=== PATIENT | male | born 1945 | race Two or more races ===

== ENCOUNTER 2017-01-09 16:37 | Inpatient (IN) | payer MEDICARE, BC ==
[~2017-01-09] VITALS: Ht 172.7 cm; Wt 53.5 kg
[2017-01-09] MEDS ORDERED: IPRATROPIUM BROMIDE (0.02%) 0.5MG/2.5ML NEB HHN STA (16:59)
[2017-01-09] MEDS ORDERED: METHYLPREDNISOLONE SOD SUCC 125 MG/2 ML VIAL IV STA (16:59)
[2017-01-09 17:18] LABS: HEMATOCRIT. 37.6 % (42.0-52.0); HEMOGLOBIN. 12.9 g/dL (14.0-18.0); MEAN CORPUSCULAR HEMOGLOBIN 33.6 pg (28.0-32.0); MEAN CORPUSCULAR HGB CONC 34.3 g/dL (31.0-37.0); PLATELET 202 x1000/uL (130-400); RED BLOOD CELL COUNT 3.83 mill/uL (4.7-6.1); RED CELL DISTRIBUTION WIDTH 15.2 % (11.6-14.6); WHITE BLOOD COUNT 5.6 x1000/uL (4.5-11.0)
[2017-01-09 17:24] LABS: DIFFERENTIAL COMMENT 1
[2017-01-09] MEDS: ALBUTEROL (0.083%) 2.5MG/3ML NEB HHN SCH ×2 (17:25→18:30)
[2017-01-09 17:27] LABS: PROTHROMBIN TIME 10.8 sec
[2017-01-09 17:39] LABS: ALANINE AMINOTRANSFERASE 16 IU/L (13-61); ALBUMIN 2.7 g/dL (3.4-5.0); ANION GAP 13; CARBON DIOXIDE 30 mEq/L (21-32); CHLORIDE 97 mEq/L (98-107); INDEX HEMOLYSI 1 (1-3); INDEX ICTERIC 1 (1-4); INDEX LIPEMIC 1 (1-3); UREA NITROGEN BLOOD 41 mg/dL (7-21); eGFR 43 mL/min (>60)
[2017-01-09 17:45] LABS: NT PRO B-TYPE NATRIURETIC PEP 29860 pg/mL (5-125)
[2017-01-09 17:47] LABS: PLATELET ESTIMATE NORMAL
[2017-01-09 17:48] LABS: ANISOCYTOSIS 1+
[2017-01-09] MEDS ORDERED: ENOXAPARIN 80MG/0.8ML SYR SUBCUT ONE (18:00)
[2017-01-09] MEDS ORDERED: ASPIRIN 325MG TABLET PO ONE (18:00)
[2017-01-09 18:52] LABS: BG BASE EXCESS 1.6 mmol/L (-2.0-2.0); BG DEOXYHEMOGLOBIN 3.6 % (0.0-5.0); BG FRACTION INSPIRED OXYGEN 21; BG HCO3 ACT 30.6 mmol/L (22.0-26.0); BG METHEMOGLOBIN 0.2 % (0.0-1.5); BG OXYGEN SATURATION 96.4 % (92.0-98.5); BG OXYHEMOGLOBIN 95.2 % (94.0-97.0); BG PCO2 70.5 mmHg (35.0-45.0); BG PH 7.255 (7.350-7.450); BG PO2 97.5 mmHg (75.0-100.0); BG SAMPLE SITE RIGHT BRACHIAL; BG TOTAL HEMOGLOBIN 13.2 g/dL (12.0-18.0); BG VENT MODE ROOM AIR
[2017-01-09] MEDS ORDERED: ACETAMINOPHEN 325MG TABLET PO PRN (19:15)
[2017-01-09] MEDS ORDERED: DIPHENHYDRAMINE 50MG/ML VIAL IV PRN (19:15)
[2017-01-09] MEDS ORDERED: DEXTROSE 50% WATER 50ML SYRINGE IV PRN (19:15)
[2017-01-09] MEDS ORDERED: ONDANSETRON HCL 4MG/2ML VIAL IV PRN (19:15)
[2017-01-09] MEDS ORDERED: ZOLPIDEM TARTRATE 5MG TABLET PO PRN (19:15)
[2017-01-09] MEDS ORDERED: CLONIDINE 0.1MG TABLET PO PRN (19:15)
[2017-01-09] MEDS ORDERED: TRAMADOL 50MG TABLET PO PRN (19:15)
[2017-01-09] MEDS ORDERED: NA PHOS,M-B/NA PHOS,DI-BA ENEMA 118ML PR PRN (19:15)
[2017-01-09] MEDS ORDERED: MAGNESIUM/ALUMINUM HYDROXIDE/SIMETHICONE 30ML UDC PO PRN (19:15)
[2017-01-09] MEDS ORDERED: LORAZEPAM 2MG/ML CPJ IV PRN (19:15)
[2017-01-09 22:00] VITALS: BP 117/50
[2017-01-09] MEDS: LEVOFLOXACIN 500MG PREMIX 100 ML IV SCH (23:04)
[2017-01-09 23:48] LABS: CREATINE KINASE MB FRACTION 2.6 ng/mL (0.5-3.6)
[2017-01-10] VITALS (12 sets, daily range): BP systolic 107–128; BP diastolic 43–80
[2017-01-10 00:12] LABS: TROPONIN I 0.56 ng/mL (0.00-0.04)
[2017-01-10] MEDS: CEFTRIAXONE 1 G PREMIX 50 ML IV SCH ×2 (02:13→08:17)
[2017-01-10] MEDS: CARVEDILOL 3.125 MG TABLET PO SCH ×2 (06:17→18:23)
[2017-01-10] MEDS: BLOOD SUGAR DIAGNOSTIC STRIP TEST SCH ×4 (07:30→21:16)
[2017-01-10] MEDS: INSULIN LISPRO 100 UNITS/ML SUBCUT SCH ×4 (08:00→21:15)
[2017-01-10] MEDS: ZINC SULFATE 220 MG ( 50 ) CAPSULE PO SCH (08:16)
[2017-01-10] MEDS: ASPIRIN 325MG EC TABLET PO SCH (08:16)
[2017-01-10] MEDS: PANTOPRAZOLE SODIUM 40 MG/VIAL IV SCH (08:17)
[2017-01-10 08:37] LABS: CREATINE KINASE MB FRACTION 2.5 ng/mL (0.5-3.6); TROPONIN I 0.28 ng/mL (0.00-0.04)
[2017-01-10] MEDS: GUAIFENESIN/DM 600MG/30MG ER TAB 12HR PO SCH ×3 (09:18→21:14)
[2017-01-10 12:30] LABS: HEMATOCRIT. 36.9 % (42.0-52.0); HEMOGLOBIN. 12.5 g/dL (14.0-18.0); MEAN CORPUSCULAR HEMOGLOBIN 33.5 pg (28.0-32.0); MEAN CORPUSCULAR HGB CONC 33.9 g/dL (31.0-37.0); MEAN CORPUSCULAR VOLUME 98.9 fL (80.0-94.0); MEAN PLATELET VOLUME 9.5 fl (7.4-10.4); PLATELET 223 x1000/uL (130-400); RED BLOOD CELL COUNT 3.74 mill/uL (4.7-6.1); RED CELL DISTRIBUTION WIDTH 15.4 % (11.6-14.6); WHITE BLOOD COUNT 5.9 x1000/uL (4.5-11.0)
[2017-01-10 12:39] LABS: DIFFERENTIAL COMMENT 1
[2017-01-10 13:14] LABS: ALANINE AMINOTRANSFERASE 16 IU/L (13-61); ALBUMIN 2.5 g/dL (3.4-5.0); ANION GAP 12; CALCIUM 9.2 mg/dL (8.5-10.1); CARBON DIOXIDE 32 mEq/L (21-32); CHLORIDE 99 mEq/L (98-107); INDEX HEMOLYSI 1 (1-3); INDEX ICTERIC 1 (1-4); INDEX LIPEMIC 1 (1-3); IRON 32 ug/dL (50-175); TOTAL IRON BINDING CAPACITY 219 ug/dL (250-450); UREA NITROGEN BLOOD 40 mg/dL (7-21); eGFR 54 mL/min (>60)
[2017-01-10] MEDS: METHYLPREDNISOLONE SOD SUCC 125 MG/2 ML VIAL IV SCH ×2 (13:35→21:14)
[2017-01-10 13:43] LABS: FOLIC ACID (FOLATE) SERUM 4.7 ng/mL (>5.38)
[2017-01-10 14:26] LABS: ATYPICAL LYMPHOCYTES 1; PLATELET ESTIMATE NORMAL
[2017-01-10] MEDS: GUAIFENESIN 200MG/10ML SUGAR FREE UDC PO PRN (15:40)
[2017-01-10] MEDS: ENOXAPARIN 80MG/0.8ML SYR SUBCUT SCH ×2 (18:25→18:56)
[2017-01-11] VITALS (11 sets, daily range): BP systolic 98–138; BP diastolic 57–96
[2017-01-11] MEDS: CARVEDILOL 3.125 MG TABLET PO SCH ×2 (05:17→08:18)
[2017-01-11] MEDS: METHYLPREDNISOLONE SOD SUCC 125 MG/2 ML VIAL IV SCH ×3 (05:21→21:38)
[2017-01-11] MEDS: BLOOD SUGAR DIAGNOSTIC STRIP TEST SCH ×4 (07:30→21:38)
[2017-01-11] MEDS: INSULIN LISPRO 100 UNITS/ML SUBCUT SCH ×4 (08:00→21:00)
[2017-01-11] MEDS: GUAIFENESIN/DM 600MG/30MG ER TAB 12HR PO SCH ×2 (08:17→21:38)
[2017-01-11] MEDS: ZINC SULFATE 220 MG ( 50 ) CAPSULE PO SCH (08:18)
[2017-01-11] MEDS: ASPIRIN 325MG EC TABLET PO SCH (08:18)
[2017-01-11] MEDS: PANTOPRAZOLE SODIUM 40 MG/VIAL IV SCH (08:19)
[2017-01-11] MEDS: LEVOFLOXACIN 500MG PREMIX 100 ML IV SCH (09:55)
[2017-01-11 10:38] LABS: *AMPHETAMINES SCREEN URINE NEGATIVE (NEGATIVE); *BARBITURATES SCREEN URINE NEGATIVE (NEGATIVE); *BENZODIAZEPINES SCREEN URINE NEGATIVE (NEGATIVE); *COCAINE SCREEN URINE NEGATIVE (NEGATIVE); CANNABINOID URINE SCREEN NEGATIVE (NEGATIVE); ECSTASY MDMA SCREEN URINE NEGATIVE (NEGATIVE); METHADONE URINE SCREEN NEGATIVE (NEGATIVE); OPIATES URINE SCREEN NEGATIVE (NEGATIVE); PHENCYCLIDINE URINE SCREEN NEGATIVE (NEGATIVE)
[2017-01-11] MEDS: CEFTRIAXONE 1 G PREMIX 50 ML IV SCH (11:30)
[2017-01-11] MEDS: MEGESTROL ACETATE 400 MG/10 ML UDC PO SCH ×2 (12:02→16:59)
[2017-01-11] MEDS: DOCUSATE SODIUM 100MG CAPSULE PO PRN (12:02)
[2017-01-11] MEDS ORDERED: SODIUM CHLORIDE 10% FOR INH 15ML VIAL NEB INH SCH (17:30)
[2017-01-11] MEDS: ENOXAPARIN 80MG/0.8ML SYR SUBCUT SCH (17:51)
[2017-01-12] VITALS (12 sets, daily range): BP systolic 106–147; BP diastolic 54–88
[2017-01-12] MEDS: METHYLPREDNISOLONE SOD SUCC 125 MG/2 ML VIAL IV SCH ×2 (05:55→13:16)
[2017-01-12] MEDS: CARVEDILOL 3.125 MG TABLET PO SCH ×2 (05:56→17:02)
[2017-01-12 06:36] LABS: HEMATOCRIT. 35.9 % (42.0-52.0); HEMOGLOBIN. 11.9 g/dL (14.0-18.0); MEAN CORPUSCULAR HEMOGLOBIN 32.4 pg (28.0-32.0); MEAN CORPUSCULAR HGB CONC 33.1 g/dL (31.0-37.0); MEAN CORPUSCULAR VOLUME 97.9 fL (80.0-94.0); MEAN PLATELET VOLUME 9.1 fl (7.4-10.4); PLATELET 283 x1000/uL (130-400); RED BLOOD CELL COUNT 3.66 mill/uL (4.7-6.1); RED CELL DISTRIBUTION WIDTH 15.6 % (11.6-14.6); WHITE BLOOD COUNT 16.1 x1000/uL (4.5-11.0)
[2017-01-12 07:00] LABS: DIFFERENTIAL COMMENT 1
[2017-01-12] MEDS: BLOOD SUGAR DIAGNOSTIC STRIP TEST SCH ×4 (07:30→21:12)
[2017-01-12 07:35] LABS: CALCIUM 9.4 mg/dL (8.5-10.1); THYROID STIMULATING HORMONE 1.4 uIU/mL (0.36-3.74)
[2017-01-12] MEDS: ASPIRIN 325MG EC TABLET PO SCH (08:52)
[2017-01-12] MEDS: GUAIFENESIN/DM 600MG/30MG ER TAB 12HR PO SCH ×2 (08:52→21:05)
[2017-01-12] MEDS: ZINC SULFATE 220 MG ( 50 ) CAPSULE PO SCH (08:53)
[2017-01-12] MEDS: INSULIN LISPRO 100 UNITS/ML SUBCUT SCH ×3 (08:53→21:12)
[2017-01-12] MEDS: MEGESTROL ACETATE 400 MG/10 ML UDC PO SCH ×2 (08:54→17:00)
[2017-01-12] MEDS ORDERED: FAMOTIDINE 20MG TABLET PO SCH (09:00)
[2017-01-12] MEDS: AZITHROMYCIN 500 MG TABLET PO SCH (09:00)
[2017-01-12] MEDS: CEFTRIAXONE 1 G PREMIX 50 ML IV SCH (10:25)
[2017-01-12 11:56] LABS: BG BASE EXCESS 8.7 mmol/L (-2.0-2.0); BG DEOXYHEMOGLOBIN 1.5 % (0.0-5.0); BG FRACTION INSPIRED OXYGEN 36; BG HCO3 ACT 37.5 mmol/L (22.0-26.0); BG METHEMOGLOBIN 0.2 % (0.0-1.5); BG OXYGEN SATURATION 98.5 % (92.0-98.5); BG OXYHEMOGLOBIN 98.3 % (94.0-97.0); BG PCO2 75.1 mmHg (35.0-45.0); BG PH 7.316 (7.350-7.450); BG PO2 147.1 mmHg (75.0-100.0); BG SAMPLE SITE RIGHT BRACHIAL; BG TOTAL HEMOGLOBIN 12.4 g/dL (12.0-18.0); BG VENT MODE NASAL CANNULA
[2017-01-12 12:37] LABS: PLATELET ESTIMATE NORMAL
[2017-01-12] MEDS ORDERED: SODIUM CHLORIDE 10% FOR INH 15ML VIAL NEB INH NR ×2 (14:00→15:00)
[2017-01-12] MEDS ORDERED: MULTIVITAMINS,THER W-MINERALS TABLET PO SCH (15:00)
[2017-01-12] MEDS: METRONIDAZOLE 500MG TABLET PO SCH ×2 (15:18→21:05)
[2017-01-12] MEDS: FOLIC ACID 1MG TABLET PO SCH (15:24)
[2017-01-12] MEDS: THIAMINE HCL 100MG TABLET PO SCH (15:24)
[2017-01-12] MEDS ORDERED: VANCOMYCIN 1 G PREMIX 200 ML IV NR (16:00)
[2017-01-12] MEDS: DOCUSATE SODIUM 100MG CAPSULE PO PRN (17:00)
[2017-01-12] MEDS: ENOXAPARIN 80MG/0.8ML SYR SUBCUT SCH (17:02)
[2017-01-12 17:37] LABS: CARCINO EMBRYONIC ANTIGEN 8.1 ng/ml
[2017-01-12 17:48] LABS: HEPATITIS B SURFACE ANTIGEN NEGATIVE
[2017-01-12 18:16] LABS: HEPATITIS C VIR.AB 0.17 INDEXVAL (0.00-0.80)
[2017-01-12 18:17] LABS: HEPATITIS A AB IGM NEGATIVE (NEGATIVE)
[2017-01-12 18:53] LABS: PROSTRATE SPECIFIC AG TOTAL 13.92 ng/mL (0.0-4.0)
[2017-01-13] VITALS (12 sets, daily range): BP systolic 103–134; BP diastolic 57–70
[2017-01-13] MEDS: CARVEDILOL 3.125 MG TABLET PO SCH (05:20)
[2017-01-13] MEDS: INSULIN LISPRO 100 UNITS/ML SUBCUT SCH ×4 (08:00→20:58)
[2017-01-13] MEDS: BLOOD SUGAR DIAGNOSTIC STRIP TEST SCH ×4 (08:03→20:58)
[2017-01-13 08:33] LABS: BG BASE EXCESS 9.8 mmol/L (-2.0-2.0); BG CARBOXYHEMOGLOBIN 0.3 % (0.5-1.5); BG HCO3 ACT 37.7 mmol/L (22.0-26.0); BG METHEMOGLOBIN 0.3 % (0.0-1.5); BG OXYHEMOGLOBIN 97.4 % (94.0-97.0); BG PCO2 69.3 mmHg (35.0-45.0); BG PH 7.354 (7.350-7.450); BG SAMPLE SITE RIGHT BRACHIAL; BG TOTAL HEMOGLOBIN 12.2 g/dL (12.0-18.0); BG VENT MODE NASAL CANNULA
[2017-01-13] MEDS: ZINC SULFATE 220 MG ( 50 ) CAPSULE PO SCH (09:17)
[2017-01-13] MEDS: GUAIFENESIN/DM 600MG/30MG ER TAB 12HR PO SCH ×2 (09:17→20:54)
[2017-01-13] MEDS: METHYLPREDNISOLONE SOD SUCC 40 MG/ML VIAL IV SCH (09:17)
[2017-01-13] MEDS: MEGESTROL ACETATE 400 MG/10 ML UDC PO SCH ×2 (09:17→17:41)
[2017-01-13] MEDS: THIAMINE HCL 100MG TABLET PO SCH (09:17)
[2017-01-13] MEDS: METRONIDAZOLE 500MG TABLET PO SCH ×2 (09:18→20:54)
[2017-01-13] MEDS: FOLIC ACID 1MG TABLET PO SCH (09:18)
[2017-01-13] MEDS: FAMOTIDINE 20MG TABLET PO SCH (09:18)
[2017-01-13] MEDS: ASPIRIN 325MG EC TABLET PO SCH (09:18)
[2017-01-13] MEDS: AZITHROMYCIN 500 MG TABLET PO SCH (09:18)
[2017-01-13] MEDS: MULTIVITAMINS,THER W-MINERALS TABLET PO SCH (09:18)
[2017-01-13] MEDS: CEFTRIAXONE 1 G PREMIX 50 ML IV SCH (09:18)
[2017-01-13] MEDS ORDERED: VANCOMYCIN 750 MG PREMIX 150 ML IV SCH (10:00)
[2017-01-13 17:32] LABS: HEPATITIS B CORE AB IGM NEGATIVE
[2017-01-13] MEDS: NICOTINE 21MG PATCH TD SCH (17:41)
[2017-01-13] MEDS: ENOXAPARIN 80MG/0.8ML SYR SUBCUT SCH (17:42)
[2017-01-14] VITALS (19 sets, daily range): BP systolic 113–144; BP diastolic 59–78
[2017-01-14] MEDS: VANCOMYCIN 750 MG PREMIX 150 ML IV SCH (05:07)
[2017-01-14] MEDS: BLOOD SUGAR DIAGNOSTIC STRIP TEST SCH ×4 (07:30→21:45)
[2017-01-14] MEDS: METRONIDAZOLE 500MG TABLET PO SCH ×2 (09:23→21:44)
[2017-01-14] MEDS: THIAMINE HCL 100MG TABLET PO SCH (09:23)
[2017-01-14] MEDS: MULTIVITAMINS,THER W-MINERALS TABLET PO SCH (09:23)
[2017-01-14] MEDS: MEGESTROL ACETATE 400 MG/10 ML UDC PO SCH ×2 (09:23→17:25)
[2017-01-14] MEDS: FAMOTIDINE 20MG TABLET PO SCH (09:23)
[2017-01-14] MEDS: AZITHROMYCIN 500 MG TABLET PO SCH (09:23)
[2017-01-14] MEDS: FOLIC ACID 1MG TABLET PO SCH (09:23)
[2017-01-14] MEDS: DOCUSATE SODIUM 100MG CAPSULE PO PRN (09:23)
[2017-01-14] MEDS: ASPIRIN 325MG EC TABLET PO SCH (09:23)
[2017-01-14] MEDS ORDERED: SODIUM CHLORIDE 10% INH SCH (09:30)
[2017-01-14] MEDS: METHYLPREDNISOLONE SOD SUCC 40 MG/ML VIAL IV SCH (09:36)
[2017-01-14] MEDS: INSULIN LISPRO 100 UNITS/ML SUBCUT SCH ×4 (09:37→22:02)
[2017-01-14] MEDS: CEFTRIAXONE 1 G PREMIX 50 ML IV SCH (11:03)
[2017-01-14] MEDS: GUAIFENESIN/DM 600MG/30MG ER TAB 12HR PO SCH ×2 (11:03→21:44)
[2017-01-14] MEDS: ZINC SULFATE 220 MG ( 50 ) CAPSULE PO SCH (11:03)
[2017-01-14 15:08] LABS: QFT MITOGEN VALUE 0.24 IU/mL (.); QFT TB AG MINUS NIL VALUE <0.00 IU/mL (.); QFT TB AG VALUE 0.07 IU/mL (.); QFT TB GOLD Indeterminate (Negative)
[2017-01-14] MEDS: NICOTINE 21MG PATCH TD SCH (17:25)
[2017-01-14] MEDS: ENOXAPARIN 80MG/0.8ML SYR SUBCUT SCH (17:25)
[2017-01-15] VITALS (12 sets, daily range): BP systolic 43–151; BP diastolic 28–75
[2017-01-15] MEDS: VANCOMYCIN 750 MG PREMIX 150 ML IV SCH ×2 (00:25→17:13)
[2017-01-15 06:49] LABS: HEMATOCRIT. 37.9 % (42.0-52.0); HEMOGLOBIN. 12.5 g/dL (14.0-18.0); MEAN CORPUSCULAR HEMOGLOBIN 32.2 pg (28.0-32.0); MEAN CORPUSCULAR VOLUME 97.6 fL (80.0-94.0); PLATELET 348 x1000/uL (130-400); RED BLOOD CELL COUNT 3.88 mill/uL (4.7-6.1); RED CELL DISTRIBUTION WIDTH 15.7 % (11.6-14.6); WHITE BLOOD COUNT 17.1 x1000/uL (4.5-11.0)
[2017-01-15] MEDS: BLOOD SUGAR DIAGNOSTIC STRIP TEST SCH ×4 (06:49→21:00)
[2017-01-15 07:13] LABS: ANION GAP 10; CALCIUM 8.8 mg/dL (8.5-10.1); CARBON DIOXIDE 38 mEq/L (21-32); CHLORIDE 99 mEq/L (98-107); INDEX HEMOLYSI 1 (1-3); INDEX ICTERIC 1 (1-4); INDEX LIPEMIC 1 (1-3); UREA NITROGEN BLOOD 34 mg/dL (7-21); eGFR > 60 mL/min (>60)
[2017-01-15 07:55] LABS: DIFFERENTIAL COMMENT 1
[2017-01-15] MEDS: ZINC SULFATE 220 MG ( 50 ) CAPSULE PO SCH (09:23)
[2017-01-15] MEDS: MEGESTROL ACETATE 400 MG/10 ML UDC PO SCH ×2 (09:23→17:13)
[2017-01-15] MEDS: CEFTRIAXONE 1 G PREMIX 50 ML IV SCH (09:23)
[2017-01-15] MEDS: METRONIDAZOLE 500MG TABLET PO SCH ×2 (09:24→22:12)
[2017-01-15] MEDS: FAMOTIDINE 20MG TABLET PO SCH (09:24)
[2017-01-15] MEDS: FOLIC ACID 1MG TABLET PO SCH (09:24)
[2017-01-15] MEDS: GUAIFENESIN/DM 600MG/30MG ER TAB 12HR PO SCH ×2 (09:24→22:12)
[2017-01-15] MEDS: AZITHROMYCIN 500 MG TABLET PO SCH (09:24)
[2017-01-15] MEDS: ASPIRIN 325MG EC TABLET PO SCH (09:24)
[2017-01-15] MEDS: THIAMINE HCL 100MG TABLET PO SCH (09:24)
[2017-01-15] MEDS: MULTIVITAMINS,THER W-MINERALS TABLET PO SCH (09:24)
[2017-01-15] MEDS: INSULIN LISPRO 100 UNITS/ML SUBCUT SCH ×4 (09:25→21:00)
[2017-01-15] MEDS: IPRATROPIUM/ALBUTEROL 0.5-3(2.5)MG/3ML NEB INH PRN ×2 (11:56→20:25)
[2017-01-15] MEDS: BUDESONIDE 0.5MG/2ML NEB HHN SCH ×2 (11:56→20:26)
[2017-01-15] MEDS ORDERED: SODIUM CHLORIDE 10% FOR INH 15ML VIAL NEB INH SCH (12:00)
[2017-01-15 12:19] LABS: PLATELET ESTIMATE NORMAL
[2017-01-15] MEDS: NICOTINE 21MG PATCH TD SCH (17:13)
[2017-01-15] MEDS: ENOXAPARIN 80MG/0.8ML SYR SUBCUT SCH (17:13)
[2017-01-16] VITALS (25 sets, daily range): BP systolic 104–144; BP diastolic 41–94
[2017-01-16] MEDS: BLOOD SUGAR DIAGNOSTIC STRIP TEST SCH ×5 (07:30→21:27)
[2017-01-16] MEDS: THIAMINE HCL 100MG TABLET PO SCH (09:02)
[2017-01-16] MEDS: ASPIRIN 325MG EC TABLET PO SCH (09:02)
[2017-01-16] MEDS: GUAIFENESIN/DM 600MG/30MG ER TAB 12HR PO SCH ×2 (09:02→21:09)
[2017-01-16] MEDS: AZITHROMYCIN 500 MG TABLET PO SCH (09:02)
[2017-01-16] MEDS: MEGESTROL ACETATE 400 MG/10 ML UDC PO SCH ×2 (09:02→16:19)
[2017-01-16] MEDS: METRONIDAZOLE 500MG TABLET PO SCH ×2 (09:02→21:09)
[2017-01-16] MEDS: FAMOTIDINE 20MG TABLET PO SCH (09:02)
[2017-01-16] MEDS: MULTIVITAMINS,THER W-MINERALS TABLET PO SCH (09:02)
[2017-01-16] MEDS: FOLIC ACID 1MG TABLET PO SCH (09:02)
[2017-01-16] MEDS: ZINC SULFATE 220 MG ( 50 ) CAPSULE PO SCH (09:03)
[2017-01-16] MEDS: CEFTRIAXONE 1 G PREMIX 50 ML IV SCH (09:04)
[2017-01-16] MEDS: INSULIN LISPRO 100 UNITS/ML SUBCUT SCH ×5 (10:10→21:27)
[2017-01-16] MEDS: VANCOMYCIN 750 MG PREMIX 150 ML IV SCH (12:35)
[2017-01-16] MEDS: BUDESONIDE 0.5MG/2ML NEB HHN SCH ×2 (13:18→20:20)
[2017-01-16] MEDS: IPRATROPIUM/ALBUTEROL 0.5-3(2.5)MG/3ML NEB INH PRN (13:19)
[2017-01-16] MEDS: NICOTINE 21MG PATCH TD SCH (16:19)
[2017-01-16] MEDS: ENOXAPARIN 80MG/0.8ML SYR SUBCUT SCH (17:19)
[2017-01-17] VITALS (12 sets, daily range): BP systolic 110–134; BP diastolic 47–74
[2017-01-17] MEDS: GUAIFENESIN 200MG/10ML SUGAR FREE UDC PO PRN (03:31)
[2017-01-17] MEDS: VANCOMYCIN 750 MG PREMIX 150 ML IV SCH ×2 (06:03→23:07)
[2017-01-17] MEDS: MULTIVITAMINS,THER W-MINERALS TABLET PO SCH (08:29)
[2017-01-17] MEDS: THIAMINE HCL 100MG TABLET PO SCH (08:29)
[2017-01-17] MEDS: ASPIRIN 325MG EC TABLET PO SCH (08:29)
[2017-01-17] MEDS: FAMOTIDINE 20MG TABLET PO SCH (08:29)
[2017-01-17] MEDS: METRONIDAZOLE 500MG TABLET PO SCH ×2 (08:29→21:09)
[2017-01-17] MEDS: MEGESTROL ACETATE 400 MG/10 ML UDC PO SCH ×2 (08:29→17:25)
[2017-01-17] MEDS: AZITHROMYCIN 500 MG TABLET PO SCH (08:29)
[2017-01-17] MEDS: ZINC SULFATE 220 MG ( 50 ) CAPSULE PO SCH (08:29)
[2017-01-17] MEDS: GUAIFENESIN/DM 600MG/30MG ER TAB 12HR PO SCH ×2 (08:29→21:09)
[2017-01-17] MEDS: FOLIC ACID 1MG TABLET PO SCH (08:29)
[2017-01-17] MEDS: CEFTRIAXONE 1 G PREMIX 50 ML IV SCH (09:09)
[2017-01-17] MEDS: IPRATROPIUM/ALBUTEROL 0.5-3(2.5)MG/3ML NEB INH PRN (10:34)
[2017-01-17] MEDS: BUDESONIDE 0.5MG/2ML NEB HHN SCH (10:35)
[2017-01-17] MEDS: BLOOD SUGAR DIAGNOSTIC STRIP TEST SCH ×3 (13:01→21:09)
[2017-01-17] MEDS: INSULIN LISPRO 100 UNITS/ML SUBCUT SCH ×3 (13:04→21:00)
[2017-01-17] MEDS: NICOTINE 21MG PATCH TD SCH (17:25)
[2017-01-17] MEDS: ENOXAPARIN 80MG/0.8ML SYR SUBCUT SCH (17:25)
[2017-01-18] VITALS (12 sets, daily range): BP systolic 103–136; BP diastolic 43–80
[2017-01-18 06:57] LABS: BASOPHILS % 0.3 % (0.0-2.0); HEMATOCRIT. 33.7 % (42.0-52.0); HEMOGLOBIN. 11.3 g/dL (14.0-18.0); LYMPHOCYTES % 13.3 % (20.0-50.0); MEAN CORPUSCULAR HEMOGLOBIN 32.7 pg (28.0-32.0); MEAN CORPUSCULAR HGB CONC 33.5 g/dL (31.0-37.0); MEAN CORPUSCULAR VOLUME 97.6 fL (80.0-94.0); MEAN PLATELET VOLUME 9.1 fl (7.4-10.4); MONOCYTES % 4.7 % (2.0-8.0); NEUTROPHILS % 80.7 % (40.0-76.0); PLATELET 229 x1000/uL (130-400); RED BLOOD CELL COUNT 3.45 mill/uL (4.7-6.1); RED CELL DISTRIBUTION WIDTH 15.5 % (11.6-14.6); WHITE BLOOD COUNT 11.9 x1000/uL (4.5-11.0)
[2017-01-18] MEDS: INSULIN LISPRO 100 UNITS/ML SUBCUT SCH ×4 (07:56→21:17)
[2017-01-18] MEDS: BLOOD SUGAR DIAGNOSTIC STRIP TEST SCH ×4 (07:56→21:16)
[2017-01-18] MEDS: CEFTRIAXONE 1 G PREMIX 50 ML IV SCH (09:24)
[2017-01-18] MEDS: AZITHROMYCIN 500 MG TABLET PO SCH (09:25)
[2017-01-18] MEDS: MEGESTROL ACETATE 400 MG/10 ML UDC PO SCH ×2 (09:25→17:56)
[2017-01-18] MEDS: FAMOTIDINE 20MG TABLET PO SCH (09:25)
[2017-01-18] MEDS: METRONIDAZOLE 500MG TABLET PO SCH ×2 (09:25→21:16)
[2017-01-18] MEDS: ASPIRIN 325MG EC TABLET PO SCH (09:25)
[2017-01-18] MEDS: THIAMINE HCL 100MG TABLET PO SCH (09:25)
[2017-01-18] MEDS: ZINC SULFATE 220 MG ( 50 ) CAPSULE PO SCH (09:25)
[2017-01-18] MEDS: FOLIC ACID 1MG TABLET PO SCH (09:25)
[2017-01-18] MEDS: MULTIVITAMINS,THER W-MINERALS TABLET PO SCH (09:25)
[2017-01-18] MEDS: GUAIFENESIN/DM 600MG/30MG ER TAB 12HR PO SCH ×2 (09:25→21:16)
[2017-01-18] MEDS: ENOXAPARIN 80MG/0.8ML SYR SUBCUT SCH (17:56)
[2017-01-18] MEDS: NICOTINE 21MG PATCH TD SCH (17:56)
[2017-01-18] MEDS: BUDESONIDE 0.5MG/2ML NEB HHN SCH (20:20)
[2017-01-18] MEDS: IPRATROPIUM/ALBUTEROL 0.5-3(2.5)MG/3ML NEB INH PRN (20:20)
[2017-01-19] VITALS (9 sets, daily range): BP systolic 101–136; BP diastolic 41–78
[2017-01-19 06:43] LABS: BASOPHILS % 0.3 % (0.0-2.0); EOSINOPHILS % 0.7 % (0.0-5.0); HEMOGLOBIN. 10.8 g/dL (14.0-18.0); LYMPHOCYTES % 15.5 % (20.0-50.0); MEAN CORPUSCULAR HEMOGLOBIN 31.8 pg (28.0-32.0); MEAN CORPUSCULAR HGB CONC 32.8 g/dL (31.0-37.0); MEAN CORPUSCULAR VOLUME 96.9 fL (80.0-94.0); MEAN PLATELET VOLUME 9.5 fl (7.4-10.4); MONOCYTES % 6.1 % (2.0-8.0); NEUTROPHILS % 77.4 % (40.0-76.0); PLATELET 239 x1000/uL (130-400); RED CELL DISTRIBUTION WIDTH 15.8 % (11.6-14.6); WHITE BLOOD COUNT 11.1 x1000/uL (4.5-11.0)
[2017-01-19 07:07] LABS: ANION GAP 9; CALCIUM 8.8 mg/dL (8.5-10.1); CARBON DIOXIDE 36 mEq/L (21-32); CHLORIDE 101 mEq/L (98-107); INDEX HEMOLYSI 1 (1-3); INDEX ICTERIC 1 (1-4); INDEX LIPEMIC 1 (1-3); UREA NITROGEN BLOOD 26 mg/dL (7-21); eGFR > 60 mL/min (>60)
[2017-01-19] MEDS: BLOOD SUGAR DIAGNOSTIC STRIP TEST SCH ×2 (08:00→11:50)
[2017-01-19] MEDS: INSULIN LISPRO 100 UNITS/ML SUBCUT SCH ×2 (08:00→12:06)
[2017-01-19] MEDS: FAMOTIDINE 20MG TABLET PO SCH (08:09)
[2017-01-19] MEDS: THIAMINE HCL 100MG TABLET PO SCH (08:09)
[2017-01-19] MEDS: FOLIC ACID 1MG TABLET PO SCH (08:09)
[2017-01-19] MEDS: ZINC SULFATE 220 MG ( 50 ) CAPSULE PO SCH (08:09)
[2017-01-19] MEDS: GUAIFENESIN/DM 600MG/30MG ER TAB 12HR PO SCH (08:09)
[2017-01-19] MEDS: METRONIDAZOLE 500MG TABLET PO SCH (08:09)
[2017-01-19] MEDS: MEGESTROL ACETATE 400 MG/10 ML UDC PO SCH (08:10)
[2017-01-19] MEDS: MULTIVITAMINS,THER W-MINERALS TABLET PO SCH (08:10)
[2017-01-19] MEDS: ASPIRIN 325MG EC TABLET PO SCH (08:10)
[2017-01-19] MEDS: IPRATROPIUM/ALBUTEROL 0.5-3(2.5)MG/3ML NEB INH PRN (09:07)
[2017-01-19] MEDS: BUDESONIDE 0.5MG/2ML NEB HHN SCH (09:07)
[2017-01-19] MEDS ORDERED: CEFTRIAXONE 1 G PREMIX 50 ML IV SCH (10:00)
== END 2017-01-19 15:13 | disposition home health service (06) | DRG 871 ==
LOC: ER 18:43 → 5EST 19:09
PROVIDERS: ADMIT Internal Medicine; ATTEND Internal Medicine
PROC: 5A09557 Assistance with Respiratory Ventilation, Greater than 96 Consecutive Hours, Continuous Positive Airway Pressure (ICD-10-PCS; principal; 2017-01-09)
DX: A41.9 Sepsis, unspecified organism (principal); J96.01 Acute respiratory failure with hypoxia; E43 Unspecified severe protein-calorie malnutrition; J18.9 Pneumonia, unspecified organism; J96.02 Acute respiratory failure with hypercapnia; J44.1 Chronic obstructive pulmonary disease with (acute) exacerbation; N17.9 Acute kidney failure, unspecified; J44.0 Chronic obstructive pulmonary disease with (acute) lower respiratory infection; Z68.1 Body mass index [BMI] 19.9 or less, adult; E11.9 Type 2 diabetes mellitus without complications; I10 Essential (primary) hypertension; D64.9 Anemia, unspecified; F10.10 Alcohol abuse, uncomplicated; F17.210 Nicotine dependence, cigarettes, uncomplicated; T38.0X5A Adverse effect of glucocorticoids and synthetic analogues, initial encounter; Z86.73 Personal history of transient ischemic attack (TIA), and cerebral infarction without residual deficits; Z80.8 Family history of malignant neoplasm of other organs or systems
CPT/HCPCS: 36415; 36600; 70551; 71010; 71250; 80048; 80053; 80061; 80202; 80305; 82105; 82375; 82378; 82550; 82553; 82607; 82746; 82805; 82962; 83036; 83540; 83550; 83615; 83880; 84153; 84443; 84484; 85007; 85025; 85027; 85610; 85651; 86140; 86480; 86635; 86698; 86705; 86709; 86803; 87040; 87070; 87106; 87116; 87340; 87430; 87804; 87899; 93005; 93306; 93970; 94640; 94660; 96374; 97162; 97535; 99291; A6261; C9113; J0696; J1650; J1815; J1956; J2060; J2920; J2930; J3370; J7050; J7131; J7611; J7620; J7626